=== PATIENT | female | born 1945 | race Caucasian/White ===

== ENCOUNTER 2016-10-12 15:28 | Observation (INO) | payer OTHER, MEDICARE ==
--- NOTE | 2016-10-12 15:51 | PDOC ---
[id number] CHEST PAIN Time Seen by Provider: 10/12/16 15:50 History Source: Patient Exam Limitations: No Limitations - History of Present Illness Initial Comments: 10/12/16 15:51 CHIEF COMPLAINT: Chest pain HISTORY OF PRESENT ILLNESS: This is a 71 year old female with a history of NIDDM , HTN, dyslipidemia, hypothyroidism and PE x 2 (on warfarin) who presents ambulatory to the ED complaining of chest "tightness", palpitations, dizziness, shortness of breath, and near syncope. She was in her usual state of health and was out shopping today when symptoms began suddenly. She reports that they are reminiscent of her prior PEs. V/s on arrival are unremarkable. Patient is a non-smoker. PCP: Dr. Howell REVIEW OF SYSTEMS: GENERAL/CONSTITUTIONAL: No fever or chills. No weakness. No weight change. HEAD, EYES, EARS, NOSE AND THROAT: No change in vision. No ear pain or discharge. No sore throat. CARDIOVASCULAR: Chest tightness, palpitations, near syncope. RESPIRATORY: Shortness of breath. No cough, wheezing, or shortness of breath. GASTROINTESTINAL: No nausea, vomiting, diarrhea or constipation. GENITOURINARY: No dysuria, frequency, or change in urination. MUSCULOSKELETAL: No joint or muscle swelling or pain. No neck or back pain. SKIN: No rash or easy bruising. NEUROLOGIC: Lightheadedness No headache, loss of consciousness, or loss of sensation. PSYCHIATRIC: No depression or anxiety. ENDOCRINE: No increased thirst. No abnormal weight change. HEMATOLOGIC/LYMPHATIC: No anemia, easy bleeding, or history of blood clots. ALLERGIC/IMMUNOLOGIC: Multiple drug allergies. No hives or skin allergy. No latex allergy. PHYSICAL EXAM: GENERAL: The patient is awake, alert, and fully oriented, in no acute distress. ENT: Pupils equal, round and reactive to light, extraocular movements intact, sclera anicteric, conjunctiva clear. Neck supple. LUNGS: Clear to auscultation bilaterally. Normal excursion. No respiratory distress or use of accessory muscles. CV: Active chest pain during exam. RRR, S1/S2, no MRG. Cap refill < 2 sec. ABDOMEN: Soft, non-distended, non-tender. EXTREMITIES: Normal range of motion, no edema. No calf tenderness. NEUROLOGICAL: Normal speech, normal gait. CN II-XII grossly intact. PSYCH: Normal mood, normal affect. Past History - Past Medical History Allergies/Adverse Reactions: Allergies Allergy/AdvReac Type Severity Reaction Status Date / Time aspirin Allergy Verified 10/12/16 15:36 codeine Allergy Verified 10/12/16 15:36 diphenhydramine HCl Allergy Verified 10/12/16 15:36 [From Benadryl] erythromycin base Allergy Verified 10/12/16 15:36 meperidine HCl [From Demerol] Allergy Verified 10/12/16 15:36 Penicillins Allergy Verified 10/12/16 15:36 Home Medications: Ambulatory Orders Biotin 1,000 mcg PO DAILY 10/12/16 Cholecalciferol (Vitamin D3) [Vitamin D3] 1,000 unit PO DAILY 10/12/16 Levothyroxine [Synthroid -] 25 mcg PO DAILY 10/12/16 Atorvastatin Ca [Lipitor] 10 mg PO HS #30 tablet 10/14/16 Carvedilol [Coreg -] 6.25 mg PO ONCE #30 tablet 10/14/16 Valsartan [Diovan] 40 mg PO DAILY #30 tablet 10/14/16 Diabetes: Yes HTN: Yes Other medical history: PE - Surgical History Cholecystectomy: Yes - Psycho/Social/Smoking Cessation Hx Anxiety: No Suicidal Ideation: No Smoking History: Never smoked Have you smoked in the past 12 months: No Information on smoking cessation initiated: No Hx Alcohol Use: No Drug/Substance Use Hx: No Substance Use Type: None *Physical Exam - Vital Signs Last Vital Signs Temp Pulse Resp BP Pulse Ox 98.1 F 89 18 137/83 100 10/12/16 15:30 10/12/16 15:30 10/12/16 15:30 10/12/16 15:30 10/12/16 15:30 Heart Score/ECG Review - ECG Intrepretation Comment:: 10/12/16 16:15 NSR at 82bpm ED Treatment Course - LABORATORY CBC & Chemistry Diagram: 10/14/16 05:35 10/14/16 05:35 - RADIOLOGY Radiology Studies Ordered: Category Date Time Status CHEST X-RAY PORTABLE* [RAD] Stat Radiology 10/12/16 15:50 Ordered Medical Decision Making - Medical Decision Making 10/12/16 16:13 A/P: 71 year old female with mutliple cardiac RFs and prior PEs presenting with chest tightness, shortness of breath, dizziness, palpitations, and near syncope. Differential includes ACS and PE (less likely if therapeutic on warfarin). 1. EKG 2. Cardiac labs 3. CTA chest 4. Echocardiogram 5. Observation vs. admission 6. Patient is allergic to ASA 10/12/16 17:22 Troponin <0.02. INR 4.47. *DC/Admit/Observation/Transfer Diagnosis at time of Disposition: Chest pain, Chest pain, rule out acute myocardial infarction - Discharge Dispostion Disposition: HOME Condition at time of disposition: Stable - Prescriptions - Referrals
--- NOTE | 2016-10-12 16:35 | PDOC ---
[id number] 100 10/12/16 15:30 10/12/16 15:30 10/12/16 15:30 10/12/16 15:30 10/12/16 15:30 ED Treatment Course - LABORATORY CBC & Chemistry Diagram: 10/14/16 05:35 10/14/16 05:35 Medical Decision Making - Medical Decision Making 10/12/16 16:34 Patient seen and evaluated with the nurse practitioner. I agree with the overall evaluation, assessment, and management with the following summary of visit: 71 y/o F with multiple cardiac risk factors and h/o PE p/w cp/palp/sob. Agree with cardiopulmonary workup as outlined. Will require admission. *DC/Admit/Observation/Transfer Diagnosis at time of Disposition: Chest pain, Chest pain, rule out acute myocardial infarction - Discharge Dispostion Disposition: HOME Condition at time of disposition: Stable - Prescriptions
[2016-10-12 17:03] LABS: BASOPHIL 0.5 % (0-2.0); EOSINOPHIL 1.2 % (0-4.5); MCH 30.1 pg (25.7-33.7); MCHC 33.6 g/dl (32.0-36.0); MEAN CELL VOLUME 89.4 fl (80-96); MEAN PLT VOLUME 7.6 fl (7.5-11.1); PLATELET COUNT 277 K/MM3 (134-434); RDW 13.5 % (11.6-15.6)
[2016-10-12 17:18] LABS: INR 4.47 (0.82-1.09); PROTHROMBIN TIME (PATIENT) 50.7 SEC (9.98-11.88)
[2016-10-12 17:23] LABS: ALBUMIN 4.1 g/dl (3.4-5.0); ALK PHOS 67 U/L (45-117); ANION GAP 10 (8-16); BILIRUBIN,TOTAL 0.2 mg/dL (0.2-1.0); CALCIUM 9.1 mg/dL (8.5-10.1); CO2 26 mmol/L (21-32); CREATININE 0.7 mg/dL (0.55-1.02); GLUCOSE,RANDOM 85 mg/dL (74-106); SGOT/AST 29 U/L (15-37); SGPT/ALT 30 U/L (12-78); TOT PROT 7.5 g/dl (6.4-8.2)
[2016-10-12 17:27] LABS: TROPONIN I < 0.02 ng/ml (0.00-0.05)
[2016-10-12] MEDS: ATORVASTATIN CA 10 MG TABLET (FP) PO ONE ×2 (18:11→18:52)
--- NOTE | 2016-10-12 19:48 | PDOC ---
Heart Score/ECG Review - History History: Moderately suspicious - Electrocardiogram EKG: Normal - Age Age: >/= 65 - Risk Factors Risk Factors Heart Score: Yes Hx Hypercholesterolemia, Yes Hx Hypertension, Yes Hx Diabetes Based on the list above the patient has:: >/=3 risk factors or Hx atherosclerotic disease - Troponin Troponin: </= normal limit - Score Heart Score - Total: 5 ED Treatment Course - LABORATORY CBC & Chemistry Diagram: 10/12/16 16:10 10/12/16 16:10 - ADDITIONAL ORDERS Additional order review: Laboratory Results 10/12/16 10/12/16 10/12/16 16:10 16:10 16:10 INR 4.47 H* Sodium Potassium Chloride Carbon Dioxide Anion Gap BUN Creatinine Creat Clearance w eGFR Random Glucose Calcium Total Bilirubin AST ALT Alkaline Phosphatase Creatine Kinase 215 H Troponin I < 0.02 B-Natriuretic Peptide 90.05 Total Protein Albumin TSH 4.75 H 10/12/16 16:10 INR Sodium 143 Potassium 3.9 Chloride 107 Carbon Dioxide 26 Anion Gap 10 BUN 14 Creatinine 0.7 Creat Clearance w eGFR > 60 Random Glucose 85 Calcium 9.1 Total Bilirubin 0.2 AST 29 ALT 30 Alkaline Phosphatase 67 Creatine Kinase Troponin I B-Natriuretic Peptide Total Protein 7.5 Albumin 4.1 TSH 10/12/16 16:10 RBC 4.58 MCV 89.4 MCHC 33.6 RDW 13.5 MPV 7.6 Neutrophils % 58.0 Lymphocytes % 32.6 Monocytes % 7.7 Eosinophils % 1.2 Basophils % 0.5 - Medications Given in the ED: ED Medications Discontinued Medications Generic Name Dose Route Start Last Admin Trade Name Freq PRN Reason Stop Dose Admin Atorvastatin Calcium 10 mg 10/12/16 18:05 10/12/16 18:52 Lipitor - PO 10/12/16 18:06 10 mg ONCE ONE Administration Progress Note - Progress Note Progress Note: I have received report from ALEX Cabrera regarding this patient. Pt's initial chief complaint: chest tightness, palpitations, dizziness, SOB, near syncope Pt's work up completed prior to sign out: labs, EKG, CXR Pt treatment given from prior staff: Atorvastatin Pt plan to be completed: Awaiting Chest CTA Dispo: Admission Medical Decision Making - Medical Decision Making A/P: 71 y/o female with PMH NIDDM, HTN, HLD, hypothyroidism and PE x 2 (on coumadin) c/o chest tightness, palpitations, dizziness, SOB and near syncope. She was assessed by [employer] Deborah. Awaiting chest CTA prior to admission. Chest CTA IMPRESSION: No PE. No lung disease. Spoke with Dr. Granados, formulation scientist for Dr. Howell and he accepts admission to obs Will have Luisa consult for cardiology. *DC/Admit/Observation/Transfer Diagnosis at time of Disposition: Chest pain, Chest pain, rule out acute myocardial infarction - Discharge Dispostion Condition at time of disposition: Stable Admit: Yes - Referrals Referrals: Max Howell MD [Primary Care Provider] - - Patient Instructions - Post Discharge Activity
[2016-10-12 23:32] LABS: TROPONIN I < 0.02 ng/ml (0.00-0.05)
[2016-10-13 05:33] VITALS: BMI 24.3
[2016-10-13 10:18] LABS: TROPONIN I < 0.02 ng/ml (0.00-0.05)
[2016-10-13 10:29] LABS: PROTHROMBIN TIME (PATIENT) 45.6 SEC (9.98-11.88)
--- NOTE | 2016-10-13 10:54 | PN ---
Progress Note (short form) - Note Progress Note: Chief Complaint: Events noted, notes reviewed, sudden onset chest pain, associated dizziness suggestive of benign positional vertigo History of Present Illness: Seen and examined in the ICU. Full consult - Current Medication List Current Medications Atorvastatin Calcium (Lipitor -) 10 mg PO HS [facility] Carvedilol (Coreg -) 6.25 mg PO BID [facility] Insulin Aspart (Novolog Vial Sliding Scale -) 1 vial SQ ACHS [facility] PRN Reason: Protocol Levothyroxine Sodium (Synthroid -) 25 mcg PO DAILY@0700 [facility] Valsartan (Diovan -) 40 mg PO DAILY [facility] - Review of Systems Cardiovascular: As noted above Respiratory: denies: Cough or Sputum Production Gastrointestinal: denies: Nausea, Vomiting, Diarrhea, Constipation or Abdominal Pain Musculoskeletal: No symptoms reported Neurological: No symptoms reported - Objective Vital Signs: Last Vital Signs Temp Pulse Resp BP Pulse Ox 98 F 75 18 130/70 98 10/13/16 10:00 10/13/16 10:00 10/13/16 10:00 10/13/16 10:00 10/13/16 09:00 Neck: Supple Negative JVD Cardiovascular: S1 S2 Regular Rate and Rhythm No Murmur Clicks or Gallops Respiratory: Clear to A&P Gastrointestinal: Soft Benign Normal Bowel Sounds Ext: Negative Edema Labs: Troponin, BNP 10/12/16 10/12/16 10/13/16 16:10 22:50 09:30 Troponin I < 0.02 < 0.02 < 0.02 B-Natriuretic Peptide 90.05 CBC, BMP 10/12/16 16:10 10/12/16 16:10 Hepatic Panel Total Bilirubin 0.2 mg/dL (0.2-1.0) 10/12/16 16:10 AST 29 U/L (15-37) 10/12/16 16:10 ALT 30 U/L (12-78) 10/12/16 16:10 Alkaline Phosphatase 67 U/L (45-117) 10/12/16 16:10 Albumin 4.1 g/dl (3.4-5.0) 10/12/16 16:10 INR, PTT INR 4.47 (0.82-1.09) H* 10/12/16 16:10 Assessment/Plan ASSESSMENT: 1. Chest pain syndrome with no evidence of ACS, CAD angina pectoris to be excluded considering her risk factors 2. Probable diastolic LV dysfunction with class 0 NYHA classification LV failure 3. Dizziness etiology of which is unclear 4. HTN 5. DM 6. Hypercholesterolemia 7. 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 Hypothyroidism PLAN: 1. Add B-Blockers, Coreg 2. Add ACEI or ARBS unless it is contraindicated 3. Hold Coumadin as per INR 4. Continue Statins 5. Hold ASA considering that there is no evidence of ACS and concomitant Coumadin administration 6. Echocardiography for evaluation of LV function 7. MPI study for evaluation of of the above noted presentation Radha Mcgraw MD
[2016-10-13] MEDS: INSULIN SLIDING SCALE (NOVOLOG) 1 VIAL SQ SCH ×3 (11:08→21:31)
--- NOTE | 2016-10-13 12:46 | HP ---
DATE OF ADMISSION: 10/13/2016 HISTORY OF PRESENT ILLNESS: The patient is a 71-year-old female with a history of diabetes, hypertension, hyperlipidemia, hypothyroidism and pulmonary emboli x2 on warfarin who presented to the emergency room with complaints of chest tightness, palpitations, dizziness, shortness of breath and near-syncope. As per the patient, she was stable at home. She went out for shopping and while there, she developed symptoms of chest pain, tightness and a mild, sudden syncopal episode. The patient went home and took her blood sugar. It was 80. She had no difficulty walking. PAST MEDICAL HISTORY: She has a history of diabetes, hypertension, PE, hypothyroidism and hypercholesterolemia. SURGICAL HISTORY: Cholecystectomy. ALLERGIES: ASPIRIN, CODEINE, DIPHENHYDRAMINE, HYDROCHLORIDE, ERYTHROMYCIN, , PENICILLIN, MEPERIDINE.. MEDICATIONS: Biotin, vitamin D3, Synthroid 25 mcg p.o. daily, metformin 1 g p.o. daily, simvastatin 10 mg daily, Coumadin 7 mg p.o. daily. PERSONAL HISTORY: The patient lives alone. No history of alcohol, drugs or smoking. REVIEW OF SYSTEMS: General: No fever, no chills. Head and Neck: Nothing significant. Cardiovascular: Chest tightness, palpitations, near-syncope. Respiratory: Shortness of breath. Gastrointestinal: No nausea, no vomiting, no diarrhea. Genitourinary: Nothing significant. Musculoskeletal: Nothing significant. Neurological: Lightheadedness present. Psychiatric: Nothing significant. Hematologic: Nothing significant. PHYSICAL EXAMINATION: General: Alert and oriented x3 in the emergency room. Vital signs: Temperature 98.1, pulse rate 89, respirations 18, blood pressure 137/89, and saturation 100%. Head and neck: Normal. Neck supple. No JVD. Chest: Clear. Cardiovascular: First and seconds sounds normal. Abdomen: Soft, no tenderness, no distension. Bowel sounds present. Extremities: No edema. Neurological: Alert and oriented x3. No apparent motor or sensory deficit. Reflexes normal. LABORATORIES: CBC normal. CMP normal. Cardiac enzymes x2 negative. INR 4.47. Liver enzymes normal. BNP 90. Total protein 7.5. TSH 4.75. EKG normal sinus rhythm at 82 per minute. X-ray chest showed nothing significant. CT chest with no evidence of PE. Metallic clip in the right upper quadrant. IMPRESSION: Patient was admitted to telemetry with an admitting diagnosis of chest tightness, shortness of breath, dizziness, palpitations, near-syncope; rule out acute coronary syndrome with supratherapeutic international normalized ratio. PLAN: Home medications resumed. Metformin on hold. Coumadin on hold. Cardiology consult. Fingerstick monitoring. Patient stable on the floor. We will follow the cardiology instructions. Christin [id number]
--- NOTE | 2016-10-13 13:19 | CONS ---
DATE OF CONSULTATION: 10/13/2016 REQUESTING PHYSICIAN: Max Costa MD CHIEF COMPLAINT: Chest discomfort, dizziness, cardiovascular evaluation. HISTORY OF PRESENT ILLNESS: A 71-year-old female of descent with known history of cardiovascular disease, diabetes mellitus, hyperlipidemia, unprovoked pulmonary thromboembolism, on chronic anticoagulation therapy with Coumadin, who presented to [facility] with the sudden onset of retrosternal chest discomfort with radiation to the left upper extremity, with associated dizziness and lightheadedness. The symptoms subsided spontaneously within a few minutes and subsequently dizziness recurred, in view of which she presented to the emergency room for further evaluation and management. The patient has been reporting intermittent episodes of retrosternal chest discomfort, which are predominantly noted at rest and not exacerbated by physical exertion. The patient denied any associated symptomatology, i.e., diaphoresis. The patient denies any dyspnea, orthopnea, paroxysmal nocturnal dyspnea or peripheral edema. The patient denies any palpitations. PAST MEDICAL HISTORY: Chest pain syndrome, hypertensive cardiovascular disease, diabetes mellitus, hypercholesterolemia, unprovoked pulmonary thromboembolism, peptic ulcer disease, tubal ligation. SOCIAL HISTORY: Remote history of tobacco abuse. FAMILY HISTORY: Positive for coronary artery disease. ALLERGIES: PENICILLIN. Intolerances to aspirin, codeine, Benadryl. MEDICATIONS: Medical therapy currently included biotin 1 tablet once a day, Coumadin 7 mg once a day, metformin 1000 mg once a day, Zocor 10 mg once a day, Synthroid 25 mcg once a day for hypothyroidism, and vitamin D 1000 units once a day. REVIEW OF SYSTEMS: Head and Neck: Denies headache, photophobia, blurring of vision. Respiratory: No cough or sputum production. Cardiovascular: As noted above. Gastrointestinal: Denies nausea, vomiting, diarrhea, abdominal discomfort. Genitourinary: No symptoms reported. Musculoskeletal: No symptoms reported. PHYSICAL EXAMINATION: Vital signs: Blood pressure is 130/70 mmHg. Pulse rate is 75 beats per minute. Head and Neck: Pupils equal and reactive to light and accommodation. Extraocular movements are intact. Anicteric sclerae. Negative JVD. No bruit appreciated. Chest: Clear to auscultation and percussion. Cardiovascular: S1 and S2 regular. No murmurs, clicks or gallops. Abdomen: Soft, benign. Normoactive bowel sounds. Extremities: Negative edema. Intact distal pulses. No calf tenderness. DIAGNOSTIC STUDIES: Electrocardiogram reveals sinus rhythm with early transition, nonspecific T-wave abnormalities. Troponin less than 0.02. CBC revealed white cell count 7.0, hemoglobin 13.8, platelet count 277. Basic metabolic profile with sodium 143, potassium 3.9, BUN 14, creatinine 0.7, glucose 85. INR 4.47. ASSESSMENT: 1. Chest pain syndrome with no evidence of acute coronary syndrome. 2. Coronary artery disease. Angina pectoris to be excluded considering her risk factors. 3. Probable diastolic left ventricular dysfunction with class 0 [place] Heart [employer] classification left ventricular failure. 4. Dizziness, the etiology of which remains unclear. 5. Hypertensive cardiovascular disease. 6. Diabetes mellitus. 7. Hypercholesterolemia. 8. History of unprovoked pulmonary thromboembolism, on chronic anticoagulation therapy with Coumadin, supratherapeutic INR. PLAN: 1. Addition of beta-blockers, Coreg. 2. Addition of BAYLEE inhibitors or angiotensin receptor blockers unless it is contraindicated. 3. Coumadin to be held as per INR. 4. Continuation of statin therapy. 5. Withhold aspirin therapy. The patient has intolerance to therapy administration, considering that there is no evidence of acute coronary syndrome and concomitant Coumadin therapy administration. 6. Echocardiography for evaluation of left ventricular size and function. 7. Myocardial perfusion imaging study for evaluation of the above-noted clinical presentation. Further recommendation will depend upon results of above. Thank you for the kind referral. KEIRY MAHAJAN M.D. [id number]
--- NOTE | 2016-10-13 13:34 | EKG ---
Test Reason : Blood Pressure : / mmHG Vent. Rate : 082 BPM Atrial Rate : 082 BPM P-R Int : 130 ms QRS Dur : 076 ms QT Int : 380 ms P-R-T Axes : 033 012 036 degrees QTc Int : 443 ms NORMAL SINUS RHYTHM NORMAL ECG WHEN COMPARED WITH ECG OF 19-NOV-1999 09:10, NO SIGNIFICANT CHANGE WAS FOUND Confirmed by ODILIA WOODARD MD ([id number]) on 10/13/2016 1:33:39 PM Referred By: Confirmed By:ODILIA WOODARD MD
[2016-10-13 14:59] LABS: INR 4.03 (0.82-1.09)
--- NOTE | 2016-10-13 20:12 | PN ---
Progress Note, Physician Chief Complaint: Pt lying in bed No chest pain,no sob,no dizziness Stress test negative Coumadin on hold as per supertherapeutic INR - Current Medication List Current Medications: Active Medications Atorvastatin Calcium (Lipitor -) 10 mg PO HS [facility] Carvedilol (Coreg -) 6.25 mg PO BID [facility] Insulin Aspart (Novolog Vial Sliding Scale -) 1 vial SQ ACHS [facility] PRN Reason: Protocol Last Admin: 10/13/16 17:00 Dose: Not Given Levothyroxine Sodium (Synthroid -) 25 mcg PO DAILY@0700 [facility] Valsartan (Diovan -) 40 mg PO DAILY [facility] - Objective Vital Signs: Vital Signs Temperature 98.8 F 10/13/16 17:00 Pulse Rate 70 10/13/16 17:00 Respiratory Rate 18 10/13/16 17:00 Blood Pressure 128/74 10/13/16 17:00 O2 Sat by Pulse Oximetry (%) 98 10/13/16 09:00 Constitutional: Yes: Well Nourished Eyes: Yes: WNL HENT: Yes: Atraumatic, Normocephalic Neck: Yes: WNL Cardiovascular: Yes: WNL, Regular Rate and Rhythm Respiratory: Yes: WNL, Regular, CTA Bilaterally Gastrointestinal: Yes: Normal Bowel Sounds, Soft Breast(s): Yes: WNL Musculoskeletal: Yes: WNL Extremities: Yes: WNL Edema: No Peripheral Pulses WNL: Yes Neurological: Yes: WNL, Alert, Oriented ...Motor Strength: WNL Psychiatric: Yes: WNL Labs: INR, PTT INR 4.03 (0.82-1.09) H* 10/13/16 09:30 - ....Imaging X-ray: Report Reviewed EKG: Report Reviewed Assessment/Plan chest pain SOB Dizziness DM hypertension Supertherapeutic INR PLAN Stress test negative Continue medications Will f/u INR
[2016-10-13] MEDS: CARVEDILOL 6.25 MG TABLET (FP) PO SCH (21:31)
[2016-10-13] MEDS ORDERED: ATORVASTATIN CA 10 MG TABLET (FP) PO SCH (22:00)
[2016-10-14] MEDS: INSULIN SLIDING SCALE (NOVOLOG) 1 VIAL SQ SCH (06:00)
[2016-10-14 06:51] LABS: BASOPHIL 0.9 % (0-2.0); EOSINOPHIL 2.2 % (0-4.5); MCH 30.4 pg (25.7-33.7); MCHC 33.8 g/dl (32.0-36.0); MEAN PLT VOLUME 7.7 fl (7.5-11.1); PLATELET COUNT 258 K/MM3 (134-434); RDW 13.7 % (11.6-15.6); WHITE BLOOD COUNT 6.4 K/mm3 (4.0-10.0)
[2016-10-14] MEDS ORDERED: LEVOTHYROXINE NA 25 MCG TABLET (FP) PO SCH (07:00)
[2016-10-14 07:10] LABS: ANION GAP 9 (8-16); CALCIUM 9.3 mg/dL (8.5-10.1); CO2 29 mmol/L (21-32); GLUCOSE,RANDOM 79 mg/dL (74-106)
[2016-10-14 07:14] LABS: ALK PHOS 65 U/L (45-117); BILIRUBIN,TOTAL 0.7 mg/dL (0.2-1.0); CREATININE 0.7 mg/dL (0.55-1.02); SGOT/AST 38 U/L (15-37); SGPT/ALT 34 U/L (12-78); TOT PROT 7.6 g/dl (6.4-8.2)
--- NOTE | 2016-10-14 09:00 | PN ---
Progress Note, Physician Chief Complaint: Pt lying in bed No chest pain,no sob,no dizziness Stress test negative INR pending Anticipate d/c home after checking INR - Current Medication List Current Medications: Active Medications Atorvastatin Calcium (Lipitor -) 10 mg PO HS [facility] Last Admin: 10/13/16 21:31 Dose: 10 mg Carvedilol (Coreg -) 6.25 mg PO BID [facility] Last Admin: 10/13/16 21:31 Dose: 6.25 mg Insulin Aspart (Novolog Vial Sliding Scale -) 1 vial SQ ACHS [facility] PRN Reason: Protocol Last Admin: 10/14/16 06:00 Dose: Not Given Levothyroxine Sodium (Synthroid -) 25 mcg PO DAILY@0700 [facility] Last Admin: 10/14/16 06:00 Dose: 25 mcg Valsartan (Diovan -) 40 mg PO DAILY [facility] - Objective Vital Signs: Vital Signs Temperature 97.4 F L 10/14/16 06:00 Pulse Rate 68 10/14/16 06:00 Respiratory Rate 18 10/14/16 06:00 Blood Pressure 122/76 10/14/16 06:00 O2 Sat by Pulse Oximetry (%) 99 10/13/16 21:00 Constitutional: Yes: No Distress Eyes: Yes: Conjunctiva Clear HENT: Yes: Atraumatic, Normocephalic Neck: Yes: Supple, Trachea Midline Cardiovascular: Yes: Regular Rate and Rhythm Respiratory: Yes: Regular, CTA Bilaterally Gastrointestinal: Yes: Normal Bowel Sounds, Soft Musculoskeletal: Yes: WNL Extremities: Yes: WNL Edema: No Peripheral Pulses WNL: Yes Neurological: Yes: WNL, Alert, Oriented ...Motor Strength: WNL Psychiatric: Yes: WNL Labs: CBC, BMP 10/14/16 05:35 10/14/16 05:35 INR, PTT INR 4.03 (0.82-1.09) H* 10/13/16 09:30 Assessment/Plan chest pain improved DM hypertension chest pain,sob improved Stress test negative PLAN d/c home after reviewing INR Metformin hold for 24 hrs Coumadin as per INR f/u in the Office
[2016-10-14] MEDS: CARVEDILOL 6.25 MG TABLET (FP) PO SCH (09:06)
[2016-10-14] MEDS ORDERED: CARVEDILOL 6.25 MG TABLET (FP) PO ONE (09:09)
[2016-10-14 09:40] LABS: CHOLESTEROL 150 mg/dL (50-200)
[2016-10-14 09:42] LABS: LDL CHOLESTEROL (ONLY SJRH) 81 mg/dL (5-100)
[2016-10-14 09:49] VITALS: BP 104/65; PULSE 64; TEMP 98
[2016-10-14] MEDS ORDERED: VALSARTAN 40 MG TABLET (FP) PO SCH (10:00)
[2016-10-14 10:14] LABS: INR 2.06 (0.82-1.09)
--- NOTE | 2016-10-14 10:27 | PN ---
Progress Note (short form) - Note Progress Note: S: 71 year old female, with history of hypertension, diabetes mellitus , hypercholesterolemia, s/p pulmonary thromboembolism approximately 10 years ago , hypothyroidism. Family history of coronary artery disease. She was admitted with sudden onset of left sided pressure like chest discomfort accompanied by severe dyspnea while she was seated in her car. Patient also complains of dizziness described as "room spinning" which apparently started with the episode of chest discomfort. Initial episode persisted for approximately 1 minute, she denied having diaphoresis, nausea or vomit. Another episode happened a few minutes later while she was in her house and patient states that it was more pronounced and again accompanied with shortness of breath and pain radiating to the left arm, associated with dizziness. Since her admission she has had no further chest discomfort. She still has dizziness while lying flat in bed. Patient underwent a myoview stress test and has limited exercise tolerance, complete stage 1 of Tae protocol and achieved 93% maximum predicted target heart rate. The nuclear results were as follows; 1. Normal myoview SPECT scan. 2. Normal left ventricular contraction with LV ejection fraction 60% Patient had CTA of the chest with contrast on admission and was reported to have no evidence of pulmonary embolism within the main pulmonary artery and the proximal arteries. Active Medications Generic Name Dose Route Start Last Admin Trade Name Freq PRN Reason Stop Dose Admin Levothyroxine Sodium 25 mcg 10/14/16 07:00 10/14/16 06:00 Synthroid - PO 25 mcg DAILY@0700 VALERY Administration Valsartan 40 mg 10/14/16 10:00 10/14/16 09:07 Diovan - PO Not Given DAILY VALERY O: 71 year old female was in no acute distress, no pallor, cyanosis, clubbing, or jaundice. Last Vital Signs Temp Pulse Resp BP Pulse Ox 98 F 64 18 104/65 98 10/14/16 09:00 10/14/16 09:00 10/14/16 09:00 10/14/16 09:00 10/14/16 09:00 Neck: Supple, no JVD, negative HJR, carotids were equal and upstrokes were normal, no thyromegaly appreciated. Heart: PMI was in the 5th intercostal space, no heaves or thrills, S1 and S2 were normal. Ejection systolic murmur grade I/ heard over the second right intercoastal space ending in early systole. Lungs: Clear on auscultation bilaterally. Abdomen: Soft, nontender, no hepatosplenomegaly appreciated, and no palpable masses were felt. Extremities: No calf tenderness or dependent edema. Pulses are equal, except PT were not felt. CBC, BMP 10/14/16 05:35 10/14/16 05:35 Laboratory Results - last 24 hr 10/13/16 10/13/16 10/13/16 09:30 09:30 11:07 WBC RBC Hgb Hct MCV MCHC RDW Plt Count MPV Neutrophils % Lymphocytes % Monocytes % Eosinophils % Basophils % INR 4.03 H* Sodium Potassium Chloride Carbon Dioxide Anion Gap BUN Creatinine Creat Clearance w eGFR POC Glucometer 85 Random Glucose Hemoglobin A1c % Calcium Total Bilirubin AST ALT Alkaline Phosphatase Creatine Kinase 172 Troponin I < 0.02 Total Protein Albumin Triglycerides Cholesterol Total LDL Cholesterol HDL Cholesterol 10/13/16 10/13/16 10/14/16 16:59 21:30 05:27 WBC RBC Hgb Hct MCV MCHC RDW Plt Count MPV Neutrophils % Lymphocytes % Monocytes % Eosinophils % Basophils % INR Sodium Potassium Chloride Carbon Dioxide Anion Gap BUN Creatinine Creat Clearance w eGFR POC Glucometer 98 116 82 Random Glucose Hemoglobin A1c % Calcium Total Bilirubin AST ALT Alkaline Phosphatase Creatine Kinase Troponin I Total Protein Albumin Triglycerides Cholesterol Total LDL Cholesterol HDL Cholesterol 10/14/16 10/14/16 10/14/16 05:35 05:35 05:35 WBC 6.4 RBC 4.79 Hgb 14.6 Hct 43.1 MCV 90.0 MCHC 33.8 RDW 13.7 Plt Count 258 MPV 7.7 Neutrophils % 54.0 Lymphocytes % 35.5 Monocytes % 7.4 Eosinophils % 2.2 D Basophils % 0.9 INR Sodium 143 Potassium 4.7 D Chloride 105 Carbon Dioxide 29 Anion Gap 9 BUN 12 Creatinine 0.7 Creat Clearance w eGFR > 60 POC Glucometer Random Glucose 79 Hemoglobin A1c % Calcium 9.3 Total Bilirubin 0.7 D AST 38 H D ALT 34 Alkaline Phosphatase 65 Creatine Kinase Troponin I Total Protein 7.6 Albumin 4.0 Triglycerides 115 Cancelled Cholesterol 150 Cancelled Total LDL Cholesterol 81 Cancelled HDL Cholesterol 59 Cancelled 10/14/16 05:35 WBC RBC Hgb Hct MCV MCHC RDW Plt Count MPV Neutrophils % Lymphocytes % Monocytes % Eosinophils % Basophils % INR Sodium Potassium Chloride Carbon Dioxide Anion Gap BUN Creatinine Creat Clearance w eGFR POC Glucometer Random Glucose Hemoglobin A1c % 5.6 Calcium Total Bilirubin AST ALT Alkaline Phosphatase Creatine Kinase Troponin I Total Protein Albumin Triglycerides Cholesterol Total LDL Cholesterol HDL Cholesterol Impression: 1. Chest pain syndrome etiology; a. Clinical presentation is suspicious for coronary artery disease, angina pectoris. Code(s): R07.9 - CHEST PAIN, UNSPECIFIED 2. Noninsulin dependent diabetes mellitus Code(s): E11.9 - TYPE 2 DIABETES MELLITUS WITHOUT COMPLICATIONS 3. Hypertension Code(s): I10 - ESSENTIAL (PRIMARY) HYPERTENSION 4. Hypercholesterolemia Code(s): E78.00 - PURE HYPERCHOLESTEROLEMIA, UNSPECIFIED 5. Hypothyroidism Code(s): E03.9 - HYPOTHYROIDISM, UNSPECIFIED 6. Family history of coronary artery disease Code(s): I25.10 - ATHSCL HEART DISEASE OF [place] CORONARY ARTERY W/O ANG PCTRS 7. Dizziness, etiology needs to be determined Code(s): R42 - DIZZINESS AND GIDDINESS Recommendations: 1. Case discussed with Dr. Howell and patient is being placed on Carvidelol 3.125 mg PO BID 2. She will be receiving a prescription of Natrostat 0.4 mg S/L for chest discomfort indications and potential side effects are being discussed. 3. 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 4. Etiology of Vertigo needs to be determined. CC Dr. Jahaira Howell Attestation: Documentation prepared by Enoch Isaac, acting as senior medical technologist for Ventura Oquendo MD.
--- NOTE | 2016-10-14 22:13 | DS ---
Physical Examination Vital Signs: Vital Signs Temperature 98 F 10/14/16 09:00 Pulse Rate 64 10/14/16 09:00 Respiratory Rate 18 10/14/16 09:00 Blood Pressure 104/65 10/14/16 09:00 O2 Sat by Pulse Oximetry (%) 98 10/14/16 09:00 Labs: CBC, BMP 10/14/16 05:35 10/14/16 05:35 Discharge Summary Reason For Visit: CHEST PAIN,sob,dizziness Current Active Problems Chest pain (Acute) Chest pain, rule out acute myocardial infarction (Acute) Coronary artery disease (Acute) Diabetes mellitus (Acute) Dizziness (Acute) Hypercholesteremia (Acute) Hypertension (Acute) Hypothyroidism (Acute) Supertherapeutic INR Hospital Course: pt with PMHx of DM,HTN,HYpercholestrolemia,S/p PE in the past admitted for Observation with Chest pain,dizziness,Sob and near syncopal episode In the ER vitals were Stable,Ekg was NL,Xray chest was nl.LABs shows CBC NL,CMP NL,INR was super therapeutic.CT chest was NL no evidence OF PE.Pt was monitored in the Telemetry Cardiac Enzymes X 3 was negative.PT had Stress test and was negative.Pt was stable on the floor.cardiolgy followed the Pt.Pt was started on coreg and diovan.coumadin was on hold. Pt was asymptomic in the floor .Pt was discharged in a stable condition.At the time of discharge INR was therapeutic Rec to f/u with cardiology and PMD Condition: Stable - Instructions Referrals: Max Howell MD [Primary Care Provider] - Disposition: HOME - Home Medications Comprehensive Discharge Medication List: Ambulatory Orders Biotin 1,000 mcg PO DAILY 10/12/16 Cholecalciferol (Vitamin D3) [Vitamin D3] 1,000 unit PO DAILY 10/12/16 Levothyroxine [Synthroid -] 25 mcg PO DAILY 10/12/16 Atorvastatin Ca [Lipitor] 10 mg PO HS #30 tablet 10/14/16 Carvedilol [Coreg -] 6.25 mg PO ONCE #30 tablet 10/14/16 Valsartan [Diovan] 40 mg PO DAILY #30 tablet 10/14/16
== END 2016-10-14 13:38 | disposition home or self-care (01) ==
LOC: JER 15:28 → JERBED 21:17 → UNDOADMOB 21:17 → JERBED 10-13 04:30 → J4W 10-13 04:30 → INTOOBSV 10-13 09:02 → JERBED 10-13 09:02 → OBSVTOIN 10-13 09:02
PROVIDERS: ADMIT Family Medicine; ATTEND Family Medicine
DX: R07.89 Other chest pain (principal); E11.9 Type 2 diabetes mellitus without complications; I10 Essential (primary) hypertension; E78.5 Hyperlipidemia, unspecified; E03.9 Hypothyroidism, unspecified; Z86.711 Personal history of pulmonary embolism; R42 Dizziness and giddiness; Z82.49 Family history of ischemic heart disease and other diseases of the circulatory system
CPT/HCPCS: 36415; 71010-TC; 71275-TC; 78452-TC; 80053; 80061; 82550; 82553; 83036; 83721; 83880; 84443; 84484; 85025; 85610; 93005; 93010; 93017; 93306-TC; 99284-25; A9502; G0378

== ENCOUNTER → 2017-01-07 | Day surgery (SDC) | payer OTHER, MEDICARE | END | disposition home or self-care (01) | LOC: FMAMMOTONE 12-31 11:07 | PROVIDERS: ATTEND Surgery Surgical Oncology | PROC: 0HBT3ZX Excision of Right Breast, Percutaneous Approach, Diagnostic (ICD-10-PCS; principal; 2017-01-07) | DX: N60.31 Fibrosclerosis of right breast (principal); N64.89 Other specified disorders of breast; R92.1 Mammographic calcification found on diagnostic imaging of breast | CPT/HCPCS: 19081; 87899; 88305-TC; A4648 ==

== ENCOUNTER 2017-12-31 09:17 | Day surgery (SDC) | payer OTHER, MEDICARE ==
[2017-12-30 14:49] VITALS: BMI 22.8
--- NOTE | 2017-12-31 09:41 | HP ---
Satellite [facility] - Chief Complaint Chief Complaint: right knee pain - Past Medical History Allergies/Adverse Reactions: Allergies Allergy/AdvReac Type Severity Reaction Status Date / Time aspirin Allergy Verified 10/12/16 15:36 carvedilol Allergy Verified 12/30/17 14:58 codeine Allergy Verified 10/12/16 15:36 diphenhydramine HCl Allergy Verified 10/12/16 15:36 [From Benadryl] erythromycin base Allergy Verified 10/12/16 15:36 meperidine HCl [From Demerol] Allergy Verified 10/12/16 15:36 Penicillins Allergy Verified 10/12/16 15:36 - Current Medications Current Medications: Home Medications Medication Instructions Recorded Cholecalciferol (Vitamin D3) 1,000 unit PO DAILY 10/12/16 [Vitamin D3] Levothyroxine [Synthroid -] 25 mcg PO DAILY 10/12/16 Metformin HCl [Glucophage] 500 mg PO BID 12/30/17 Metoprolol Succinate 25 mg PO DAILY 12/30/17 Nitroglycerin 0.4 mg SL PRN 12/30/17 Simvastatin 10 mg PO DAILY 12/30/17 Warfarin Na [Coumadin -] 7 mg PO DAILY 12/30/17 Oxycodone HCl/Acetaminophen 1 tab PO Q6H #20 tablet MDD 4 12/31/17 [Percocet 5-325 mg Tablet] Satellite Physical Exam - Physical Examination General Appearance: Well Nourished, Well Developed, Alert & Oriented x3 ENT: Clear Lung: Normal air movement Heart: Regular rate & rhythm Extremities: Other (right knee- + swelling, + ttp, dec rom, nvi MRi + mt) Neurological: Intact, Alert, Oriented Satellite Impression/Plan - Impression/Plan Impression: right knee internal derangement Operative Procedure: right knee arthroscopy Date to be Performed: 12/31/17
[2017-12-31 10:10] LABS: INR 1.2 (0.82-1.09); PROTHROMBIN TIME (PATIENT) 13.6 SEC (9.7-13.0)
[2017-12-31 10:12] LABS: ACTIVATED PTT 28.3 SECONDS (26.9-34.4)
[2017-12-31] MEDS ORDERED: LIDOCAINE 1%/EPI 1:100000 (50 ML MULTI DOSE VIAL) INF ONE (11:03)
[2017-12-31] MEDS ORDERED: BUPIVACAINE HCL/PF 0.5% (5MG/ML) 10 ML VIAL IJ ONE (11:03)
[2017-12-31] MEDS ORDERED: oxyCODONE HCL 5 MG TABLET PO PRN ×2 (11:34)
[2017-12-31] MEDS ORDERED: ONDANSETRON 4 MG/2 ML VIAL IVPUSH PRN (11:34)
[2017-12-31] MEDS ORDERED: PROMETHAZINE HCL 25 MG/1 ML VIAL IVPUSH PRN (11:34)
--- NOTE | 2017-12-31 11:57 | OP ---
Operative Note - Note: Operative Date: 12/31/17 Pre-Operative Diagnosis: INTERNAL DERANGEMENT RIGHT KNEE Operation: ARTHROSCOPY RIGHT KNE WITH PARTIAL MM AND LM Post-Operative Diagnosis: Same as Pre-op Surgeon: Liang Dailye Estimated Blood Loss (mls): 0 Operative Report Dictated: Yes
--- NOTE | 2017-12-31 13:53 | OP ---
DATE OF OPERATION: 12/31/2017 PREOPERATIVE DIAGNOSIS: Internal derangement, right knee. POSTOPERATIVE DIAGNOSIS: Internal derangement, right knee. PROCEDURE: Arthroscopy left knee, partial medial and lateral meniscectomy. SURGEON: Liang Dailey MD ANESTHESIA: General with LMA. CLOSURES: 4-0 nylon. COMPLICATIONS: None. CONDITION: To recovery room in stable condition. DESCRIPTION OF PROCEDURE: The patient was taken to the operating room on December 31, 2017. General anesthesia LMA was administered by the anesthesiologist. The right lower extremity was prepped and draped in the usual sterile fashion. The medial and lateral infrapatellar portal sites were made with a 15 blade blunt trocar. Scope was placed in the lateral infrapatellar portal and up to the suprapatellar pouch. The pouch was then inflated with a cocktail of 10 mL 1% lidocaine 10 mL 0.5% Marcaine with 20 mL of arthroscopic saline. After anesthetic was allowed to work in the knee, the procedure was performed. The pouch was visualized to be clean. The medial and lateral gutters were visualized to be clean. The undersurface of the patella and trochlea were visualized to be intact. With valgus stress on the knee, the medial compartment was entered and medial meniscus visualized and probed and found to have a complex tear. This was debrided back to smooth, stable meniscal tissue using a meniscal biter and arthroscopic shaver. An accessory more medial portal was needed in order to facilitate this procedure. That was made with a 15 blade blunt trocar. The medial femoral condyle was found to have some changes, was debrided with clean shaver. The medial tibial plateau was found to be intact. At 90 degrees, the ACL was visualized and probed and found to be intact. In figure-4 position, lateral compartment was entered. Lateral meniscus was also found to have some radial tear. This was debrided back to smooth and stable meniscal tissue with meniscal biter and arthroscopic shaver. The lateral and femoral condyles were probed and found to be intact as was the lateral tibial plateau. The knee was irrigated with copious amounts of irrigation. The port was closed using 4-0 nylon. A sterile pressure dressing was placed over the knee. The patient was awakened from anesthesia and transferred to recovery in stable condition with no complications. Estimated blood loss negligible. Christin [id number]
[2017-12-31 17:19] VITALS: TEMP 97.9
[2017-12-31 17:24] VITALS: PULSE 77
[2017-12-31 17:26] VITALS: BP 101/56
--- NOTE | 2018-01-03 13:19 | PATH ---
Surgical Pathology Report Patient Name: MICHAEL PABLO [facility]. Rec. #: [id number] /Age/Gender: 1945 (Age: 72) / F Account: [id number] Location: [facility] SURGICAL Taken: 12/31/2017 Received: 12/31/2017 Reported: 01/03/2018 Physicians: Liang Dailey M.D. Specimen(s) Received RIGHT KNEE SHAVINGS Clinical History Right knee internal derangement Final Diagnosis KNEE SHAVINGS, RIGHT, ARTHROSCOPY: FRAGMENTS OF CARTILAGE, DENSE FIBROCONNECTIVE TISSUE, ADIPOSE TISSUE, AND REACTIVE SYNOVIUM. Electronically Signed Marilu Rust M.D. Gross Description Received in formalin, labeled "right knee shavings" is a 2 x 2 x 0.3 cm aggregate of horne to yellow soft tissue fragments. A public relations representative portion is submitted in one cassette. EBONY/12/31/2017 june/12/31/2017
== END 2017-12-31 17:00 | disposition home or self-care (01) ==
LOC: JASU-SURG 09:17
PROVIDERS: ATTEND Orthopaedic Surgery
PROC: 0SBC4ZZ Excision of Right Knee Joint, Percutaneous Endoscopic Approach (ICD-10-PCS; 2017-12-31)
PROC: 0SBC4ZZ Excision of Right Knee Joint, Percutaneous Endoscopic Approach (ICD-10-PCS; principal; 2017-12-31 10:45)
DX: M23.8X1 Other internal derangements of right knee (principal)
CPT/HCPCS: 36415; 82962; 85610; 85730; 88304-TC; 94760; 97116-GP